=== PATIENT | female | born 1975 | race Caucasian/White ===

== ENCOUNTER 2024-07-24 13:26 | Inpatient (IN) | payer BC ==
[2024-07-24 14:27] VITALS: BMI 26.6
[2024-07-24] MEDS ORDERED: DICYCLOMINE HCL 10 MG CAPSULE PO PRN (15:12)
[2024-07-24] MEDS ORDERED: BENZONATATE 200 MG CAPSULE PO PRN (15:12)
[2024-07-24] MEDS ORDERED: LOPERAMIDE HCL 2 MG CAPSULE PO PRN (15:12)
[2024-07-24] MEDS ORDERED: IBUPROFEN 400 MG TABLET (FP) PO PRN (15:12)
[2024-07-24] MEDS ORDERED: NALOXONE (NARCAN) HCL 4 MG/0.1 ML SPRAY NS PRN (15:12)
[2024-07-24] MEDS ORDERED: ACETAMINOPHEN 325 MG TABLET (FP) PO PRN (15:12)
[2024-07-24] MEDS ORDERED: NALOXONE (NYS OPIOID OVERDOSE PROGRAM) 4 MG/0.1 ML SPRAY NS PRN (15:12)
[2024-07-24] MEDS ORDERED: POLYETHYLENE GLYCOL (HEALTHYLAX) 3350 17 GM PACKET PO PRN (15:12)
[2024-07-24] MEDS ORDERED: BENZOCAINE/MENTHOL (CHLORASEPTIC ) LOZENGE MM PRN (15:12)
[2024-07-24] MEDS ORDERED: ONDANSETRON *ODT* 4 MG TABLET SL PRN (15:12)
[2024-07-24] MEDS ORDERED: MAGNESIUM HYDROX 2400MG/30ML ORAL SUSPENSION 30 ML CUP PO PRN (15:12)
[2024-07-24] MEDS ORDERED: MAG HYDROX/AL HYDROX/SIMETH 30 ML UNIT-DOSE CUP PO PRN (15:12)
[2024-07-24] MEDS ORDERED: BISMUTH SUBSALICYLATE 524 MG/30 ML PO PRN (15:12)
[2024-07-24] MEDS ORDERED: guaiFENesin 600 MG TABLET.ER (FP) PO PRN (15:12)
[2024-07-24] MEDS ORDERED: LORazepam 2 MG TABLET ONE (16:35)
[2024-07-24] MEDS ORDERED: PRENATAL VITAMINS W/ FOLIC ACID TABLET (FP) PO ONE (16:35)
[2024-07-24] MEDS ORDERED: NICOTINE 14 MG/24 HOURS TOPICAL PATCH TD ONE (16:35)
[2024-07-24] MEDS: PRENATAL VITAMINS W/ FOLIC ACID TABLET (FP) PO SCH (16:41)
[2024-07-24] MEDS: LORazepam 2 MG TABLET PO SCH ×2 (16:41→18:07)
[2024-07-24] MEDS: NICOTINE 14 MG/24 HOURS TOPICAL PATCH TD SCH (16:41)
[2024-07-24] MEDS: THIAMINE 100 MG TABLET PO SCH (22:47)
[2024-07-24] MEDS: MELATONIN 5 MG TABLETS PO SCH (22:47)
[2024-07-24] MEDS: METHOCARBAMOL 500 MG TABLET PO PRN (22:47)
[2024-07-24] MEDS: IBUPROFEN 600 MG TABLET (FP) PO PRN (22:48)
[2024-07-25] MEDS ORDERED: LORazepam 1 MG TABLET PO SCH (05:00)
[2024-07-25] MEDS: hydrOXYzine PAMOATE 25 MG CAPSULE (FP) PO PRN (10:08)
[2024-07-25 12:22] LABS: HEMOGLOBIN 13.5 GM/dL (10.7-15.3); MCHC 33.8 g/dl (32.0-36.0); MEAN CELL VOLUME 103.8 fl (80-96); MEAN PLT VOLUME 10.1 fl (7.5-11.1); PLATELET COUNT 112 10^3/uL (134-434); RBC 3.85 M/mm3 (3.60-5.2); RDW 14.2 % (11.6-15.6); WHITE BLOOD COUNT 4.4 K/mm3 (4.0-10.0)
[2024-07-25 12:34] LABS: CHLORIDE 103 mmol/L (98-107); POTASSIUM 4.1 mmol/L (3.5-5.1); SODIUM 136 mmol/L (136-145)
[2024-07-25 12:39] LABS: CALCIUM 9.4 mg/dL (8.5-10.1)
[2024-07-25 12:40] LABS: ALBUMIN 3.5 g/dl (3.4-5.0); ANION GAP 7 mmol/L (4-13); BLOOD UREA NITROGEN 6.7 mg/dL (7-18); CO2 26 mmol/L (21-32); GLUCOSE,RANDOM 97 mg/dL (74-106)
[2024-07-25 12:43] LABS: CREATININE 0.4 mg/dL (0.55-1.3); SGOT/AST 180 U/L (15-37)
[2024-07-25 12:45] LABS: BILIRUBIN,TOTAL 1.3 mg/dL (0.2-1); TOT PROT 7.5 g/dl (6.4-8.2)
[2024-07-25 12:46] LABS: ALK PHOS 114 U/L (45-117); SGPT/ALT 52 U/L (13-61)
[2024-07-25] MEDS: LORazepam 1 MG TABLET PO PRN (13:47)
[2024-07-26] MEDS ORDERED: LORazepam 0.5 MG TABLET PO PRN
[2024-07-26] MEDS ORDERED: LORazepam 0.5 MG TABLET PO SCH (05:00)
[2024-07-26] MEDS: LORazepam 1 MG TABLET PO SCH (05:20)
[2024-07-26] MEDS: MINERAL OIL/PET HY-PHL TOPICAL OINTMENT 454 GM JAR TP SCH (13:14)
[2024-07-26] MEDS: LORazepam 1 MG TABLET PO PRN (19:45)
[2024-07-27] MEDS ORDERED: LORazepam 0.5 MG TABLET PO PRN
[2024-07-27] MEDS: LORazepam 0.5 MG TABLET PO SCH (05:46)
[2024-07-27] MEDS: LORazepam 0.5 MG TABLET PO ONE (06:00)
[2024-07-28] MEDS: LORazepam 0.5 MG TABLET PO ONE (05:22)
[2024-07-28 09:14] VITALS: BP 127/71; PULSE 92; RESP 16; TEMP 98.7
== END 2024-07-28 10:40 | disposition home or self-care (01) | DRG 775 ==
LOC: YASAS 13:26 → Y3N 16:35
PROVIDERS: ADMIT Allergy & Immunology; ATTEND Surgery
PROC: HZ2ZZZZ Detoxification Services for Substance Abuse Treatment (ICD-10-PCS; principal; 2024-07-24)
DX: F10.230 Alcohol dependence with withdrawal, uncomplicated (principal); F17.210 Nicotine dependence, cigarettes, uncomplicated; F41.1 Generalized anxiety disorder; F32.9 Major depressive disorder, single episode, unspecified; I10 Essential (primary) hypertension; K74.60 Unspecified cirrhosis of liver; Z88.6 Allergy status to analgesic agent
CPT/HCPCS: 36415; 80053; 80305; 80307; 81025; 85027; 86780; 93005; 93010